=== PATIENT | female | born 1995 | race Caucasian/White ===

== ENCOUNTER 2022-02-26 16:58 | Outpatient (REF) | payer BC, SELFPAY ==
--- NOTE | 2022-02-26 15:00 | PAPFT_PTH ---
PATIENT: Tessa Godwin LOC: [facility] U#:[id number] AGE/SX: 26/F ROOM: RE02/26/[address]: Deena Nicole : 1995 BED: DIS: 02/26/2022 SPEC #: [id number] RECD: 02/26/22 17:38 STATUS: JENNIFER REQ #: [id number] DE: 02/26/22 15:[address]: Deena Nicole DEPT: [facility] Cytology RECD BY: Caryn Silverio ENTERED: 02/26/22 17:38 SP TYPE: PAPFT NICOLÁS DR: Jose Whitney, [place] Tissues: 1 - CX/ENDOCX FOR PAP SMEARS Procedures: PAP THIN PREP/[facility] Screening Comments: [id number]
== END 2022-02-26 16:59 | disposition home or self-care (01) ==
LOC: LBN 16:58
PROVIDERS: PCP Nurse Practitioner Family; Visit Provider Advanced Practice Midwife
DX: Z12.4 Encounter for screening for malignant neoplasm of cervix (principal)
CPT/HCPCS: 88142

== ENCOUNTER 2023-01-26 03:07 | Outpatient (CLI) | payer BC, SELFPAY ==
[2023-01-26 18:07] LABS: Calculated LDL 58 mg/dL (<100); Cholesterol 125 mg/dL (<200); HDL Cholesterol 58 mg/dL (40-60); Triglyceride 45 mg/dL (<150)
[2023-01-26 18:09] LABS: Hemoglobin A1C 5.7 % (<5.7)
== END 2023-01-26 03:08 | disposition home or self-care (01) ==
LOC: LBO 03:10
PROVIDERS: PCP Nurse Practitioner Family; Visit Provider Nurse Practitioner Family
DX: Z13.220 Encounter for screening for lipoid disorders (principal); Z13.1 Encounter for screening for diabetes mellitus
CPT/HCPCS: 36415; 80061; 83036